=== PATIENT | female | born 1980 | race Hispanic/Latino ===

== ENCOUNTER 2023-12-29 16:20 | Emergency (ER) | payer BC, OTHER ==
--- OUTSIDE RECORDS SUMMARY | 2023-12-29 16:23 | XMS REPORT | Continuity of Care Document ---
Author Name Unknown Address [address] [facility] [facility] [address] [place] [address] [facility] thconnect Address [address] [place] [address] Care Team Providers Care Medical Billing Service Name Role Phone Pcp, Patient Does Not Have A Primary Care Physic elena ESTBEAN ANDINO Attending Clinician Unavailab BERENICE Leroy Attending Clinician ZEKE De Los Santos Attending Clinician Unavailable LAB90 Attending Clinician Unavailable Berenice Bhatt MD Attending Clinician [phone] Robert Castro Attending Clinician [phone] Doctor Unassigned, Grandin Attending Clinician U ROBERT Gagnon Attending Clinician Unavailable Lab, Adc Fam Pob I Attending Clinician Unavailab Adelaide Ding Attending Clinician [phone] ADELAIDE FULLER Attending Clinician Unavailable Payers Payer Name Policy Type Policy Number Effective Date Expirati on Date Source [facility] 2 [id number] 2022 00:00:00 Problems Condition Name Condition Details Condition Category Status Onset Date Resolution Date Last Treatment Date Treating Clinician Comments Source No known active problems No known active problems Disease Denise Seybold - Externa l Allergies, Adverse Reactions, Alerts Allergy Name Allergy Type Status Severity Reaction(s) Onset Date Inactive Date Treating Clinician Comments Source NO KNOWN ALLERGIE S Drug Class Active [facility] Social History Social Habit Start Date Stop Date Quantity Comments Source Sexual orientation Joaquín stacy Carson - External History of tobacco use Smoker [facility] Exposure to SARS-CoV-2 (event) Not sure [facility] Alcohol intake 2022-06-29 00:00:00 2022-06-29 00:00:00 Lifetime non-drinker (finding) Denise Byrd - External Alcoholic beverage intake 2022-06-29 00:00:00 2022-06-29 00:00:00 Lifetime non-drinker (finding) Denise Byrd - External History of Social function 2022-06-29 00:00:00 2022-06-29 00:00:00 Denise Byrd - External Tobacco use and exposure 2022-02-04 00:00:00 2022-02-04 00:00:00 Smokeless tobacco non-user Denise Byrd - External Sex [birth year] at 1980 00:00:00 1980 00:00:00 Denise Byrd - External Smoking Status Start Date Stop Date Source Never smoked tobacco Denise Byrd - External Smoker 2021-09-17 00:00:00 [facility] Medications Ordered Medication Name Filled Medication Name Start Date Stop Date Current Medication? Ordering Clinician Indication Dosage Frequency Signature (SIG) Comments Components Source Cyclobenzap rine HCl 10 MG oral Tablet 12-08 00:00: 00 Yes [id number] 10mg Q.5D Take 1 tablet (10 mg total) by mouth 2 times daily as needed for muscle spasms. Denise arenas Gabapentin 600 MG oral Tablet 12-08 00:00: 00 Yes [id number] 600mg Take 1 tablet (600 mg total) by mouth 3 times daily. Denise arenas Omeprazole 10 MG oral Delayed Release Capsule 2021-07 00:00: 00 Yes Denise arenas Diclofenac Sodium 75 MG oral Tablet Delayed Response 02-04 00:00: 00 Yes [id number] 75mg Take 1 tablet (75 mg total) by mouth in the morning and 1 tablet (75 mg total) in the evening. Take with meals. Denise arenas DICLOFENAC 75 mg EC tablet 2022-0 7-12 00:00: 00 Yes [id number] 9105 TAKE ONE TABLET BY MOUTH TWICE A DAY WITH MEALS [facility] DICLOFENAC 75 mg EC tablet 6-28 00:00: 00 Yes [id number] 9105 TAKE ONE TABLET BY MOUTH TWICE A DAY WITH MEALS [facility] DICLOFENAC 75 mg EC tablet 5-13 00:00: 00 Yes [id number] 9105 TAKE ONE TABLET BY MOUTH TWICE A DAY WITH A MEAL [facility] DICLOFENAC 75 mg EC tablet 4-13 00:00: 00 Yes [id number] 9105 TAKE ONE TABLET BY MOUTH TWICE A DAY WITH MEALS [facility] DICLOFENAC 75 mg EC tablet 3-14 00:00: 00 11-05 00:00 :00 No [id number] 9105 TAKE ONE TABLET BY MOUTH TWICE A DAY WITH MEALS [facility] triamcinolo ne acetonide (KENALOG) injection 40 mg - 22:00: 00 09-17 20:58 :00 No [id number] 9109 40mg [facility] DICLOFENAC 75 mg EC tablet -11 00:00: 00 Yes [id number] 9105 TAKE ONE TABLET BY MOUTH TWICE A DAY WITH A MEAL [facility] Vital Signs Vital Name Observation Time Observation Value Comments S ource Systolic blood pressure 2022-06-29 19:30:00 134 mm[Hg] Denise resendez - External Diastolic blood pressure 2022-06-29 19:30:00 82 mm[Hg] Denise resendez - External Heart rate 2022-06-29 19:30:00 91 /min Rupa Byrd - External Body temperature 2022-06-29 19:30:00 36.67 Georgiana Denise Byrd - External Respiratory rate 2022-06-29 19:30:00 13 /min Denise Byrd - External Body height 2022-06-29 19:30:00 167.6 cm Sneha Byrd - External Body weight 2022-06-29 19:30:00 175.542 kg Sneha Byrd - External BMI 2022-06-29 19:30:00 62.46 kg/m2 Sneha yBrd - External Oxygen saturation in Arterial blood by Pulse oximetry 2022-06-29 19:30:00 99 /min Denise resendez - External Systolic blood pressure 2021-09-17 20:09:00 124 mm[Hg] [facility] Diastolic blood pressure 2021-09-17 20:09:00 82 mm[Hg] [facility] Heart rate 2021-09-17 20:09:00 97 /min [facility] 2021-09-17 20:09:00 167.6 cm [facility] Body weight 2021-09-17 20:09:00 175.95 kg [facility] BMI 2021-09-17 20:09:00 62.61 kg/m2 [facility] Oxygen saturation in Arterial blood by Pulse oximetry 2021-09-17 20:09:00 96 /min [facility] Procedures Procedure Date / Time Performed Performing Clinicia n Source REFERRAL- REQUEST/RESPONSE 2021-10-08 05:01:00 Doctor Unassigned, Grandin [facility] Encounters Start Date/Time End Date/Time Encounter Type Admission Type Attending Clinicians Care Facility Care Department Encounter ID Source 2023-12-29 00:00:00 2023-12-29 00:00:00 Outpatient ESTEBAN ANDINO [id number] Denise [facility] 2023-12-09 15:00:00 2023-12-09 15:00:00 Outpatient [facility] [id number] [facility]22-06-29 13:30:00 2022-06-29 13:30:00 Outpatient BERENICE BHATT [id number] Denise Byrd 2022-06-29 08:15:00 2022-06-29 08:15:00 Outpatient ZEKE ALLEN [id number] Denise Byrd 2022-03-09 00:00:00 2022-03-09 00:00:00 Outpatient BERENICE BHATT [id number] Denise [facility] 2022-03-05 00:00:00 2022-03-05 00:00:00 Outpatient BERENICE BHATT DENISE [id number] Denise Byrd 2022-02-09 00:00:00 2022-02-09 00:00:00 Outpatient BERENICE BHATT [id number] Denise Byrd 2022-02-04 16:30:00 2022-02-04 16:30:00 Outpatient LAB90 EDNISE DENISE [id number] [facility] 2022-02-04 15:45:00 2022-02-04 16:15:00 Office Visit Berenice Bhatt [place] [id number] 350.1.13.13 [id number] [id number] [facility] 2022-01-25 00:00:00 2022-01-25 00:00:00 Refill [facility] VITOR?[facility] [id number] 350.1.13.10 4.2.7.2.686 [id number] [facility] 2022-01-19 00:00:00 2022-01-19 00:00:00 Refill [facility] VITOR?[facility] [id number] 350.1.13.10 4.2.7.2.686 [id number] [facility] 2021-12-04 00:00:00 2021-12-04 00:00:00 Refill [facility] VITOR?[facility] [id number] 350.1.13.10 4.2.7.2.686 [id number] [facility] 2021-11-04 00:00:00 2021-11-04 00:00:00 Refill [facility] VITOR?[facility] [id number] 350.1.13.10 4.2.7.2.686 [id number] [facility] 2021-10-08 00:00:00 2021-10-08 00:00:00 Orders Only Doctor Unassigned, [facility] 1.2114 350.1.13.10 4.2.7.2.686 [id number] [facility] 2021-10-05 00:00:00 2021-10-05 00:00:00 Refill [facility] VITOR?[facility] 1.114 350.1.13.10 4.2.7.2.686 [id number] [facility] 2021-09-17 14:00:00 2021-09-17 15:28:29 Office Visit [facility] VITOR?[facility] 1.114 350.1.13.10 4.2.7.2.686 [id number] [facility] 2021-09-17 14:00:00 2021-09-17 15:28:29 Outpatient Alexandro [facility] [id number] [facility] 2021-09-17 14:00:00 2021-09-17 14:00:00 Outpatient Alexandro [facility] [id number] [facility] 2021-09-16 00:00:00 2021-09-16 00:00:00 Telephone [facility] VITOR?[facility] 1.84.114 350.1.13.10 4.2.7.2.686 [id number] [facility] 2021-09-05 00:00:00 2021-09-05 00:00:00 Refill [facility] VITOR?[facility] 1.114 350.1.13.10 4.2.7.2.686 [id number] [facility] 2021-08-20 00:00:00 2021-08-20 00:00:00 Orders Only Doctor Unassigned, Grandin [facility] 1.114 350.1.13.10 4.2.7.2.686 [id number] [facility] 2021-08-05 13:15:00 2021-08-05 23:59:00 Outpatient R [facility]I [facility] [id number] [facility] 2021-08-05 13:15:00 2021-08-05 23:59:00 Hospital Encounter [facility] VITOR?[facility] 1.114 350.1.13.10 4.2.7.2.686 [id number] [facility] 2021-08-05 13:00:00 2021-08-05 13:30:00 [facility] 1.114 350.1.13.10 4.2.7.2.686 [id number] [facility] 2021-08-05 13:15:00 2021-08-05 13:15:00 Outpatient R [facility] [id number] [facility] 2021-08-05 00:00:00 2021-08-05 00:00:00 [facility] 1.114 350.1.13.10 4.2.7.2.686 [id number] [facility] 2020-08-16 13:03:30 2020-08-16 13:23:30 Laboratory Only Lab, Adc Fam Juniorb Adelaide Dupree [facility] Katherine [facility] Office Building [facility] 1.114 350.1.13.10 4.2.7.2.686 [id number] [facility] 2020-08-16 13:00:00 2020-08-16 13:00:00 Outpatient ADELAIDE [facility] [id number] [facility]
[2023-12-29] MEDS ORDERED: HYDROCODONE/APAP 10/325 TAB ONE (17:22)
[2023-12-29] MEDS ORDERED: ONDANSETRON 4 MG (ODT) TAB ONE (17:22)
[2023-12-29] MEDS ORDERED: IBUPROFEN 400 MG TAB ONE (17:23)
[2023-12-29 17:55] LABS: Specific Gravity 1.011 (1.005-1.030)
--- NOTE | 2023-12-29 18:36 | RAD REPORT ---
EXAM DESCRIPTION: CT - CTHCSPWOC - 12/29/2023 6:20 pm CLINICAL HISTORY: Trauma, head and neck injury. TRAUMA COMPARISON: <Comparisons> TECHNIQUE: Axial 5 mm thick images of the head were obtained. Axial 2 mm thick images of the cervical spine were obtained with sagittal and coronal reconstruction images generated and reviewed. All CT scans are performed using dose optimization technique as appropriate and may include automated exposure control or mA/KV adjustment according to patient size. FINDINGS: CT HEAD WITHOUT CONTRAST: No acute hemorrhage, hydrocephalus or extra-axial collection is identified.No areas of brain edema or midline shift. The paranasal sinuses and mastoids are clear.The calvarium is intact. CT CERVICAL SPINE WITHOUT CONTRAST: No fracture or subluxation.Mild midcervical degenerative change.No prevertebral soft tissues swelling is identified. IMPRESSION: No acute intracranial or cervical spine findings.
--- NOTE | 2023-12-29 18:46 | RAD REPORT ---
EXAM DESCRIPTION: CT - Thoracic Spine W/o Cont - 12/29/2023 6:20 pm CLINICAL HISTORY: Radiculopathy. PAIN COMPARISON: Head C Spine Mpr Wo Con dated 12/29/2023 TECHNIQUE: Axial CT imaging through the thoracic spine was performed with coronal and sagittal re-fo rmatted images. All CT scans are performed using dose optimization technique as appropriate and may include automated exposure control or mA/KV adjustment according to patient size. FINDINGS: Vertebral body heights and disc spaces are maintained. A compression fracture is not prese nt. No significant disc space narrowing. Thoracic spine alignment is within normal limits. No paraspinal masses or hematoma. Cholecystectomy clips. IMPRESSION: Negative study.
--- NOTE | 2023-12-29 19:28 | ER ---
Nurse's Notes [facility] Name: Lora Cabral Age: 43 yrs Sex: Female : 1980 Arrival Date: 12/29/2023 Time: 16:20 Bed 11 Private MD: Diagnosis: Fall on same level, unspecified;Unspecified injury of head, initial encounter;Strain of muscle, fascia and tendon at neck level, initial encounter;Strain of muscle and tendon of back wall of thorax Presentation: 12/28 16:52 Chief complaint: Patient states: she fell yesterday, and is having right sided shoulder ap3 and neck pain. patient currently rates her pain as a 9/10 on the pain scale. Coronavirus screen: At this time, the client does not indicate any symptoms associated with coronavirus-19. Ebola Screen: No symptoms or risks identified at this time. Initial Sepsis Screen: Does the patient meet any 2 criteria? No. Patient's initial sepsis screen is negative. Does the patient have a suspected source of infection? No. Patient's initial sepsis screen is negative. Risk Assessment: Do you want to hurt yourself or someone else? Patient reports no desire to harm self or others. Onset of symptoms was December 28, 2023. 16:52 Method Of Arrival: Ambulatory ap3 16:52 Acuity: KODY 3 ap3 Triage Assessment: 16:54 General: Appears in no apparent distress. Behavior is calm, cooperative, appropriate ap3 for age. Pain: Complains of pain in right shoulder and neck Pain currently is 9 out of 10 on a pain scale. Neuro: Level of Consciousness is awake, alert, obeys commands, Oriented to person, place, time, situation. Cardiovascular: Patient's skin is warm and dry. Respiratory: Airway is patent Respiratory effort is even, unlabored, Respiratory pattern is regular, symmetrical. Historical: - Allergies: 16:53 No Known Allergies; ap3 - Home Meds: 16:53 gabapentin oral [Active]; Flexeril Oral [Active]; ap3 - PMHx: 16:53 Fibromyalgia; ap3 - Immunization history:: Client reports having NOT received the Covid vaccine. Flu vaccine is not up to date. - Infectious Disease History:: Denies. - Social history:: Smoking status: Patient denies any tobacco usage or history of. Screenin:55 Abuse screen: Denies threats or abuse. Nutritional screening: No deficits noted. ap3 Tuberculosis screening: No symptoms or risk factors identified. 19:32 [facility] ED Fall Risk Assessment (Adult) History of falling in the last 3 months, jb4 including since admission Yes- single mechanical fall (1 pt) Confusion or Disorientation No (0 pts) Intoxicated or Sedated No (0 pts) Impaired Gait No (0 pts) Mobility Assist Device Used No (0 pt) Altered Elimination No (0 pt) Score/Fall Risk Level 0 - 2 = Low Risk Oriented to surroundings, Maintained a safe environment. Assessment: 18:02 Reassessment: Patient appears in no apparent distress at this time. Patient and/or iw family updated on plan of care and expected duration. Pain level reassessed. Patient is alert, oriented x 3, equal unlabored respirations, skin warm/dry/pink. 19:32 Reassessment: Patient appears in no apparent distress at this time. Patient and/or jb4 family updated on plan of care and expected duration. Pain level reassessed. Patient is alert, oriented x 3, equal unlabored respirations, skin warm/dry/pink. Vital Signs: 16:52 Pulse 62; Resp 17; Temp 98.2; Pulse Ox 100% ; Weight 149.69 kg; Height 5 ft. 6 in. ; ap3 Pain 9/10; 16:52 Body Mass Index 53.26 (149.69 kg, 167.64 cm) ap3 16:52 Pain Scale: Adult ap3 Alicia Coma Score: 17:11 Eye Response: spontaneous(4). Motor Response: obeys commands(6). Verbal Response: philipp oriented(5). Total: 15. ED Course: 16:23 Patient arrived in ED. mr 16:24 Milton Escobar MD is Attending Physician. philipp 16:53 Triage completed. ap3 16:55 Arm band placed on right wrist. ap3 17:22 Sonali Tena, ELI is Primary Nurse. iw 18:03 No provider procedures requiring assistance completed. Patient did not have IV access iw during this emergency room visit. 18:22 CT Head C Spine In Process Unspecified. EDMS 18:22 CT Thoracic Spine Wo Cont In Process Unspecified. EDMS 19:32 Patient has correct armband on for positive identification. Bed in low position. Call jb4 light in reach. Side rails up X 1. Provided Education on: Discharge instructions. Administered Medications: 17:40 Drug: Ibuprofen PO 800 mg PO once Route: PO; iw 18:00 Follow up: Response: No adverse reaction iw 17:40 Drug: [place] PO 10 mg-325 mg 1 tabs PO once Route: PO; iw 18:20 Follow up: Response: No adverse reaction iw 17:40 Drug: Ondansetron PO 4 mg PO once Route: PO; iw 18:00 Follow up: Response: No adverse reaction iw Medication: 18:03 VIS not applicable for this client. iw Outcome: 19:27 Discharge ordered by . philipp 19:32 Discharged to home ambulatory, jb4 19:32 Condition: stable 19:32 Discharge instructions given to patient, Instructed on discharge instructions, follow up and referral plans. no drinking with medication, no driving heavy equipment, medication usage, Demonstrated understanding of instructions, follow-up care, medications, Prescriptions given X 3, 19:33 Patient left the ED. jb4 Signatures: Dispatcher [employer] EDMS Milton Escobar MD MD cha Rivera , [facility] Reg Sonali Larsen, ELI RN Sidney Blair RN RN jb4 Ranjana Holden RN RN ap3
--- NOTE | 2023-12-29 19:28 | EDPHYS ---
Physician Documentation [facility] Name: Lora Cabral Age: 43 yrs Sex: Female : 1980 Arrival Date: 12/29/2023 Time: 16:20 Bed 11 Private MD: DARIO Physician Milton Escobar HPI: 12/28 17:06 This 43 yrs old Female presents to ER via Ambulatory with complaints of Fall philipp Injury, Neck pain, Shoulder Pain. 17:06 Details of fall: The patient fell from an upright position, while standing, while philipp walking. Onset: The symptoms/episode began/occurred just prior to arrival. Associated injuries: The patient sustained injury to the head, neck injury, upper back injury, decreased range of motion, pain. Severity of symptoms: At their worst the symptoms were mild, moderate, in the emergency department the symptoms are unchanged. The patient has not experienced similar symptoms in the past. Historical: - Allergies: 16:53 No Known Allergies; ap3 - Home Meds: 16:53 gabapentin oral [Active]; Flexeril Oral [Active]; ap3 - PMHx: 16:53 Fibromyalgia; ap3 - Immunization history:: Client reports having NOT received the Covid vaccine. Flu vaccine is not up to date. - Infectious Disease History:: Denies. - Social history:: Smoking status: Patient denies any tobacco usage or history of. ROS: 17:07 Constitutional: Negative for fever, chills, and weight loss, Eyes: Negative for injury, philipp pain, redness, and discharge, ENT: Negative for injury, pain, and discharge, Cardiovascular: Negative for chest pain, palpitations, and edema, Respiratory: Negative for shortness of breath, cough, wheezing, and pleuritic chest pain, Abdomen/GI: Negative for abdominal pain, nausea, vomiting, diarrhea, and constipation, Back: Negative for injury and pain, : Negative for injury, bleeding, discharge, and swelling, MS/Extremity: Negative for injury and deformity, Skin: Negative for injury, rash, and discoloration, Neuro: Negative for headache, weakness, numbness, tingling, and seizure, Psych: Negative for depression, anxiety, suicide ideation, homicidal ideation, and hallucinations, Allergy/Immunology: Negative for hives, rash, and allergies, Endocrine: Negative for neck swelling, polydipsia, polyuria, polyphagia, and marked weight changes, Hematologic/Lymphatic: Negative for swollen nodes, abnormal bleeding, and unusual bruising, 17:07 Neck: Positive for pain with movement, pain at rest, Exam: 17:07 Constitutional: This is a well developed, well nourished patient who is awake, alert, philipp and in no acute distress. ENT: Nares patent. No nasal discharge, no septal abnormalities noted. Tympanic membranes are normal and external auditory canals are clear. Oropharynx with no redness, swelling, or masses, exudates, or evidence of obstruction, uvula midline. Mucous membranes moist. Neck: Trachea midline, no thyromegaly or masses palpated, and no cervical lymphadenopathy. Supple, full range of motion without nuchal rigidity, or vertebral point tenderness. No Meningismus. Chest/axilla: Normal chest wall appearance and motion. Nontender with no deformity. No lesions are appreciated. Cardiovascular: Regular rate and rhythm with a normal S1 and S2. No gallops, murmurs, or rubs. Normal PMI, no JVD. No pulse deficits. Respiratory: Lungs have equal breath sounds bilaterally, clear to auscultation and percussion. No rales, rhonchi or wheezes noted. No increased work of breathing, no retractions or nasal flaring. Abdomen/GI: Soft, non-tender, with normal bowel sounds. No distension or tympany. No guarding or rebound. No evidence of tenderness throughout. Skin: Warm, dry with normal turgor. Normal color with no rashes, no lesions, and no evidence of cellulitis. MS/ Extremity: Pulses equal, no cyanosis. Neurovascular intact. Full, normal range of motion. Neuro: Awake and alert, GCS 15, oriented to person, place, time, and situation. Cranial nerves II-XII grossly intact. Motor strength 5/5 in all extremities. Sensory grossly intact. Cerebellar exam normal. Normal gait. Psych: Awake, alert, with orientation to person, place and time. Behavior, mood, and affect are within normal limits. 17:07 Head/face: Noted is contusion, tenderness, that is mild, of the left side of the back of head, left occipital area, left base of the skull, right side of the back of head, right occipital area and right base of the skull, 17:07 Neck: External neck: is normal, C-spine: appears grossly normal, no acute changes, ROM/movement: pain, that is mild, with extension, with flexion, limited range of motion, is not appreciated, Meningeal signs: Kernig's sign is negative, Brudzinski's sign is negative, nuchal rigidity, is not appreciated, Lymph nodes: no appreciated lymphadenopathy, Vital Signs: 16:52 Pulse 62; Resp 17; Temp 98.2; Pulse Ox 100% ; Weight 149.69 kg; Height 5 ft. 6 in. ; ap3 Pain 9/10; 16:52 Body Mass Index 53.26 (149.69 kg, 167.64 cm) ap3 16:52 Pain Scale: Adult ap3 [place] Coma Score: 17:11 Eye Response: spontaneous(4). Motor Response: obeys commands(6). Verbal Response: philipp oriented(5). Total: 15. MDM: 17:04 Patient medically screened. philipp 17:11 Differential diagnosis: Contusion of head, Intracranial bleed- subdural, epidural, philipp subarachnoid, intracerebral. Differential diagnosis: closed head injury, contusion, fracture, multiple trauma, sprain, strain. Data reviewed: vital signs, nurses notes, radiologic studies, CT scan. Consideration of Admission/Observation Escalation of care including admission/observation considered. I considered the following discharge prescriptions or medication management in the emergency department Medications were administered in the Emergency Department. See MAR. Test considered but Not performed: CT: ct head, c spine, ct thoracic. 12/28 17:27 Order name: Test, Urine; Complete Time: 18:16 iw 12/28 16:40 Order name: CT Head C Spine; Complete Time: 19:27 philipp 12/28 16:40 Order name: CT Thoracic Spine Wo Cont; Complete Time: 19:27 philipp Administered Medications: 17:40 Drug: Ibuprofen PO 800 mg PO once Route: PO; iw 18:00 Follow up: Response: No adverse reaction iw 17:40 Drug: [place] PO 10 mg-325 mg 1 tabs PO once Route: PO; iw 18:20 Follow up: Response: No adverse reaction iw 17:40 Drug: Ondansetron PO 4 mg PO once Route: PO; iw 18:00 Follow up: Response: No adverse reaction iw Disposition Summary: 12/29/23 19:27 Discharge Ordered Notes: Location: Home philipp Problem: new philipp Symptoms: have improved philipp Condition: Stable philipp Diagnosis - Fall on same level, unspecified philipp - Unspecified injury of head, initial encounter philipp - Strain of muscle, fascia and tendon at neck level, initial encounter philipp - Strain of muscle and tendon of back wall of thorax philipp Followup: philipp - With: Private Physician - When: 2 - 3 days - Reason: Recheck today's complaints, Continuance of care, Re-evaluation by your physician Discharge Instructions: - Discharge Summary Sheet philipp - Head Injury, Adult philipp - Fall Prevention in the Home, Adult philipp - Muscle Strain philipp - Fall Prevention in the Home, Adult, [id number] philipp - Muscle Strain, [id number] philipp - Head Injury, Adult, [id number] philipp Forms: - Medication Reconciliation Form philipp - Antibiotic Education philipp - Prescription Opioid Use philipp - Patient Portal Instructions [facility] - Leadership Thank You Letter [facility] Prescriptions: - acetaminophen-codeine 300-30 mg Oral tablet - take 2 tablet ORAL route every 6 hours as needed for pain; 20 tablet; Refills: philipp 0, Product Selection Permitted - Diclofenac Sodium 75 mg Oral tablet, delayed release (enteric coated) - take 1 tablet ORAL route 2 times per day; 20 tablet; Refills: 0, Product philipp Selection Permitted - Cyclobenzaprine 5 mg Oral Tablet - take 1 tablet ORAL route 3 times per day As needed; 15 tablet; Refills: 0, philipp Product Selection Permitted Signatures: Dispatcher [employer] Milton Zambrano MD MD cha Williams, Irene, RN RN iw Prokisch, Amanda, RN RN ap3
[2023-12-29 20:06] VITALS: TEMP 98.2; O2SAT 100
== END 2023-12-29 19:33 | disposition home or self-care (01) ==
LOC: ER 16:20
DX: S16.1XXA Strain of muscle, fascia and tendon at neck level, initial encounter (principal); S29.012A Strain of muscle and tendon of back wall of thorax, initial encounter; W18.30XA Fall on same level, unspecified, initial encounter
CPT/HCPCS: 81025; 70450; 72125; 72128; 99283; Q0162